=== PATIENT | male | born 2000 | race Two or more races ===

== ENCOUNTER 2021-06-27 09:41 | Emergency (ER) | payer OTHER ==
[~2021-06-27] VITALS: Ht 177.8 cm; Wt 75.3 kg
== END 2021-06-27 14:32 | disposition home or self-care (01) ==
LOC: ER 09:41
DX: S20.211A Contusion of right front wall of thorax, initial encounter (principal); S80.02XA Contusion of left knee, initial encounter; V49.9XXA Car occupant (driver) (passenger) injured in unspecified traffic accident, initial encounter; Y93.89 Activity, other specified; Y92.488 Other paved roadways as the place of occurrence of the external cause; Y99.8 Other external cause status